=== PATIENT | male | born 2000 | race Caucasian/White ===

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

== ENCOUNTER 2019-07-01 22:05 | Emergency (ER) | payer MEDICAID, OTHER ==
[~2019-07-01] VITALS: Ht 182.9 cm; Wt 63.5 kg
[2019-07-01 22:16] VITALS: BP 148/82
[2019-07-01 22:39] LABS: Basophils # (auto) 0 10 ^3/uL (0-0.2); Basophils % (auto) 0.3 % (0.0-2.0); Eosinophils # (auto) 0.5 10 ^3/uL (0-0.8); Eosinophils % (auto) 5.2 % (0.0-7.0); Hematocrit 48.4 % (41.0-53.0); Lymphocytes # (auto) 3.5 10 ^3/uL (0.4-5.4); Lymphocytes % (auto) 39.4 % (10.0-50.0); Mean Corpuscular Hemoglobin 33.5 pg (28.0-32.0); Mean Corpuscular Hgb Conc. 35.1 g/dL (32.0-36.0); Mean Corpuscular Volume 95.4 fL (80.0-100.0); Monocytes # (auto) 0.5 10 ^3/uL (0-1.3); Neutrophils # (auto) 4.3 10 ^3/uL (1.6-8.6); Neutrophils % (auto) 49.1 % (37.0-80.0); Nucleated Red Blood Cells % 0.1 %; Platelet Count (auto) 271 10^3/uL (140-450); Red Blood Cells 5.07 10^6/uL (4.5-5.90); Red Cell Distribution Width 12.9 % (11.8-14.3); White Blood Cell 8.8 10^3/uL (4.4-10.8)
[2019-07-01 22:56] LABS: Alanine Aminotransferase 27 U/L (16-61); Albumin 4.4 g/dL (3.4-5.0); Anion Gap 3 (5-15); Aspartate Aminotransferase 13 U/L (15-37); BUN/Creatinine Ratio 11.5; Blood Urea Nitrogen 9 mg/dL (7-18); Calcium 8.9 mg/dL (8.5-10.1); Carbon Dioxide 29 mmol/L (21-32); Chloride 106 mmol/L (98-107); GFR African American 165 mL/min; GFR Non-African American 136 mL/min; Glucose 102 mg/dL (74-106); Magnesium 2.1 mg/dL (1.6-2.6); Potassium 3.1 mmol/L (3.5-5.1); Sodium 138 mmol/L (136-145)
[2019-07-01 23:01] LABS: Alkaline Phosphatase 73 U/L (45-117); Bilirubin, Total 1.2 mg/dL (0.2-1.0); Total Protein 8.4 g/dL (6.4-8.2)
[2019-07-01 23:22] LABS: INR 1.02 (0.9-1.15); Partial Thromboplastin Time 25.9 sec (23.64-32.05)
== END 2019-07-02 02:50 | disposition left against medical advice (07) ==
LOC: ER 22:05
DX: R07.2 Precordial pain (principal); Z53.21 Procedure and treatment not carried out due to patient leaving prior to being seen by health care provider
CPT/HCPCS: 36415; 71046; 80053; 83735; 84443; 84484; 85025; 85379; 85610; 85730; 93005

== ENCOUNTER 2020-07-05 13:20 | Emergency (ER) | payer MEDICAID ==
[~2020-07-05] VITALS: Ht 182.9 cm; Wt 63.5 kg
[2020-07-05 13:24] VITALS: BP 156/88
[2020-07-05] MEDS ORDERED: ALBUTEROL SULF 2.5 MG/0.5ML(0.5%) NEB SOLN NEB ONE (15:15)
[2020-07-05] MEDS ORDERED: IPRATROPIUM BROM 0.5 MG/2.5ML INH SOL NEB ONE (15:15)
== END 2020-07-05 16:04 | disposition home or self-care (01) ==
LOC: ER 13:20
DX: J45.909 Unspecified asthma, uncomplicated (principal); Z20.822 Contact with and (suspected) exposure to COVID-19
CPT/HCPCS: 36415; 71045; 87426; 93005; 94640; 99285; J7644

== ENCOUNTER 2020-12-17 13:14 | Emergency (ER) | payer MEDICAID ==
[~2020-12-17] VITALS: Ht 182.9 cm; Wt 63.5 kg
[2020-12-17 14:02] VITALS: BP 139/75
== END 2020-12-17 15:41 | disposition home or self-care (01) ==
LOC: ER 13:14
DX: S61.211A Laceration without foreign body of left index finger without damage to nail, initial encounter (principal); S61.213A Laceration without foreign body of left middle finger without damage to nail, initial encounter; W26.0XXA Contact with knife, initial encounter; Y93.89 Activity, other specified; Y92.090 Kitchen in other non-institutional residence as the place of occurrence of the external cause; Y99.8 Other external cause status
CPT/HCPCS: 12002; 99283; J2001

== ENCOUNTER 2020-12-27 07:43 | Emergency (ER) | payer MEDICAID ==
[~2020-12-27] VITALS: Ht 182.9 cm; Wt 63.5 kg
[2020-12-27 08:24] VITALS: BP 132/92
== END 2020-12-27 09:16 | disposition home or self-care (01) ==
LOC: ER 07:43
DX: S61.211D Laceration without foreign body of left index finger without damage to nail, subsequent encounter (principal); S61.213D Laceration without foreign body of left middle finger without damage to nail, subsequent encounter; W26.0XXD Contact with knife, subsequent encounter

== ENCOUNTER 2021-04-15 21:21 | Emergency (ER) | payer SELFPAY ==
[~2021-04-15] VITALS: Ht 182.9 cm; Wt 62.6 kg
[2021-04-16 00:25] VITALS: BP 137/86
== END 2021-04-16 00:37 | disposition home or self-care (01) ==
LOC: EDBD 21:21 → ER 21:21
DX: B34.9 Viral infection, unspecified (principal); Z20.822 Contact with and (suspected) exposure to COVID-19
CPT/HCPCS: 36415; 87426